=== PATIENT | male | born 1960 | race African-American/Black ===

== ENCOUNTER 2016-10-30 13:03 | Emergency (ER) | payer SELFPAY ==
--- NOTE | 2016-10-30 14:30 | RAD ---
LEFT HAND 3 VIEWS: HISTORY: Left thumb injury. Slipped and fell and hyperflexed thumb while getting off a bulldozer. COMPARISON: None. FINDINGS: The exam is limited without an adequate lateral radiograph. There is what appears to be dorsal disl ocation of the thumb interphalangeal joint. There is mild interphalangeal joint space narrowing. IMPRESSION: Findings suggestive of dorsal dislocation of the thumb interphalangeal joint. Recommend repeat view s of the film with adequate lateral exam. POS: [facility]
== END 2016-10-30 14:45 | disposition left against medical advice (07) ==
LOC: NAV ERS 13:03
DX: Z53.21 Procedure and treatment not carried out due to patient leaving prior to being seen by health care provider (principal)